=== PATIENT | male | born 1955 | race Caucasian/White ===

== ENCOUNTER 2017-06-13 12:59 | Emergency (ER) | payer MEDICARE, OTHER ==
[2017-06-13 13:12] VITALS: BP 130/82
--- NOTE | 2017-06-13 13:37 | XRAY Report ---
EXAM: CHEST RADIOGRAPHY EXAM DATE: 06/13/2017 01:27 PM. CLINICAL HISTORY: Cough. COMPARISON: None. TECHNIQUE: 2 views. FINDINGS: Lungs/Pleura: No focal opacities evident. No pleural effusion. No pneumothorax. Normal volumes. Mediastinum: Heart and mediastinal contours are unremarkable. Other: None. IMPRESSION: Negative chest. [facility] Referring Provider Line: [phone] SITE ID: [id number]
[2017-06-13] MEDS ORDERED: DEXAMETHASONE 10 MG/ML VIAL PO STA (14:43)
--- NOTE | 2017-06-13 14:45 | ED Physician Documentation ---
PD HPI URI - Stated complaint Stated Complaint: COUGH - Chief complaint Chief Complaint: Heent - History obtained from History obtained from: Patient - History of Present Illness Timing - onset: How many days ago (4) Timing duration: Days (4) Timing details: Gradual onset Pain level max: 4 Pain level now: 3 Associated symptoms: Nasal congestion, Rhinorrhea, Sore throat (mild), Dry cough. No: Fever, Chills, Chest pain, Dyspnea, NVD Contributing factors: Sick contact. No: Travel, Immunocompromised Improves by: Rest Worsened by: Activity Recently seen: Not recently seen Review of Systems Constitutional: denies: Fever, Chills Nose: reports: Rhinorrhea / runny nose, Congestion Throat: denies: Sore throat GI: denies: Abdominal Pain, Nausea, Vomiting, Diarrhea Skin: denies: Rash Musculoskeletal: denies: Neck pain, Back pain Neurologic: denies: Headache PD PAST MEDICAL HISTORY - Past Medical History Past Medical History: Yes GI: GERD - Past Surgical History Past Surgical History: No - Present Medications Home Medications: Ambulatory Orders Medication Instructions Recorded Confirmed Aspirin 1 tab PO DAILY 06/13/17 06/13/17 Benzonatate [Tessalon Perle] 100 - 200 mg PO TID PRN #30 capsule 06/13/17 Cetirizine HCl/Pseudoephedrine 1 each PO BID PRN #30 tab.er.12h 06/13/17 [Zyrtec-D Tablet] Omeprazole [PriLOSEC] 1 tab PO DAILY 06/13/17 06/13/17 - Allergies Allergies/Adverse Reactions: Allergies Allergy/AdvReac Type Severity Reaction Status Date / Time No Known Drug Allergies Allergy Verified 06/13/17 14:27 - Social History Does the pt smoke?: No Smoking Status: Never smoker Does the pt drink ETOH?: No Does the pt have substance abuse?: No - Immunizations Immunizations are current?: Yes - POLST Patient has POLST: No PD ED PE NORMAL - Vitals Vital signs reviewed: Yes - General General: Alert and oriented X 3, No acute distress, Well developed/nourished - HEENT HEENT: PERRL, Ears normal, Moist mucous membranes, Pharynx benign - Neck Neck: Supple, no meningeal sign - Cardiac Cardiac: RRR, Strong equal pulses - Respiratory Respiratory: No respiratory distress, Clear bilaterally - Abdomen Abdomen: Soft, Non tender, Non distended - Derm Derm: Warm and dry - Extremities Extremities: No edema, No calf tenderness / cord - Neuro Neuro: Alert and oriented X 3 - Psych Psych: Normal mood, Normal affect Results - Vitals Vitals: Vital Signs - 24 hr 06/13/17 13:10 Temperature 36.8 C Heart Rate 81 Respiratory 18 Rate Blood Pressure 130/82 H O2 Saturation 98 Oxygen O2 Source Room air - Rads (name of study) Chest x-ray Radiology: Prelim report reviewed, EMP read contemporaneously, See rad report ( No acute disease) PD MEDICAL DECISION MAKING - ED course Complexity details: reviewed results, re-evaluated patient, considered differential, d/w patient ED course: Patient is a 62-year-old gentleman who presents to the emergency department with what appears to be a viral upper respiratory infection. Negative chest x- ray. No pneumonia. No fevers. Will continue supportive care and prescribed cough medication for home as well as decongestants. He is well-appearing, nontoxic. No hypoxia. No respiratory distress. Lungs are clear to auscultation bilaterally. Patient counseled regarding signs and symptoms for which I believe and urgent re-evaluation would be necessary. Patient with good understanding of and agreement to plan and is comfortable going home at this time This document was made in part using voice recognition software. While efforts are made to proofread this document, sound alike and grammatical errors may occur. Departure - Departure Disposition: 01 Home, Self Care Clinical Impression: Viral URI with cough Condition: Good Instructions: ED URI Viral Follow-Up: ANGELICA DALLAS [Primary Care Provider] - Within 1 week Prescriptions: Benzonatate [Tessalon Perle] 100 - 200 mg PO TID PRN #30 capsule PRN Reason: Cough Cetirizine HCl/Pseudoephedrine [Zyrtec-D Tablet] 1 each PO BID PRN #30 tab.er.12h PRN Reason: Nasal Congestion Comments: Return if you worsen. Use the hydrocodone cough syrup at night to help you sleep. This will likely last for 1-2 weeks. Discharge Date/Time: 06/13/17 14:55
== END 2017-06-13 14:55 | disposition home or self-care (01) ==
LOC: ED 12:59
DX: J06.9 Acute upper respiratory infection, unspecified (principal); B97.89 Other viral agents as the cause of diseases classified elsewhere; K21.9 Gastro-esophageal reflux disease without esophagitis
CPT/HCPCS: 71046; 99283

== ENCOUNTER 2017-07-12 06:04 | Emergency (ER) | payer MEDICARE, OTHER ==
[2017-07-12 06:14] VITALS: BP 131/87
[2017-07-12] MEDS ORDERED: DEXAMETHASONE 10 MG/ML VIAL PO STA (06:21)
[2017-07-12] MEDS ORDERED: IBUPROFEN 600 MG TABLET PO STA (06:21)
--- NOTE | 2017-07-12 06:26 | ED Physician Documentation ---
PD HPI HEENT - Stated complaint Stated Complaint: SORE THROAT - Chief complaint Chief Complaint: Heent - History obtained from History obtained from: Patient - History of Present Illness Timing - onset: Yesterday Timing - details: Gradual onset, Still present Location: Throat Improves: Medication Worsens: Swalllowing Associated symptoms: No: Fever Recently seen: Not recently seen - Additional information Additional information: Patient is a 62 year old male with no significant past medical history who is presenting to the emergency department for sore throat and exudate. patient states that the symptoms started yesterday. patient states that he gargled with salt water and mouth wash but the symptoms persisted. patient states that he has symptoms like this once in the past a long time ago and it was strep. Review of Systems Constitutional: denies: Fever, Chills Eyes: denies: Decreased vision, Photophobia Ears: denies: Loss of hearing, Ear pain Nose: denies: Congestion Throat: reports: Sore throat, Swollen tonsils Cardiac: reports: Reviewed and negative Respiratory: denies: Cough GI: reports: Reviewed and negative : reports: Reviewed and negative Skin: reports: Reviewed and negative Neurologic: reports: Reviewed and negative Immunocompromised: denies: Immunocompromised PD PAST MEDICAL HISTORY - Past Medical History GI: GERD - Past Surgical History Past Surgical History: No - Present Medications Home Medications: Ambulatory Orders Medication Instructions Recorded Confirmed Aspirin 1 tab PO DAILY 06/13/17 06/13/17 Benzonatate [Tessalon Perle] 100 - 200 mg PO TID PRN #30 capsule 06/13/17 Cetirizine HCl/Pseudoephedrine 1 each PO BID PRN #30 tab.er.12h 06/13/17 [Zyrtec-D Tablet] Omeprazole [PriLOSEC] 1 tab PO DAILY 06/13/17 06/13/17 - Allergies Allergies/Adverse Reactions: Allergies Allergy/AdvReac Type Severity Reaction Status Date / Time No Known Drug Allergies Allergy Verified 06/13/17 14:27 - Social History Does the pt smoke?: No Smoking Status: Never smoker Does the pt drink ETOH?: No Does the pt have substance abuse?: No - Immunizations Immunizations are current?: Yes - POLST Patient has POLST: No PD ED PE NORMAL - Vitals Vital signs reviewed: Yes - General General: Alert and oriented X 3, No acute distress - HEENT HEENT: Atraumatic, PERRL - Neck Neck: Supple, no meningeal sign - Cardiac Cardiac: RRR - Respiratory Respiratory: No respiratory distress - Abdomen Abdomen: Soft, Non tender, Non distended - Derm Derm: Normal color, No rash - Extremities Extremities: No deformity, Normal ROM s pain - Neuro Neuro: Alert and oriented X 3, No motor deficit, Normal speech Eye Opening: Spontaneous Motor: Obeys Commands Verbal: Oriented GCS Score: 15 - Psych Psych: Normal mood PD ED PE EXPANDED - HEENT HEENT: Pharyngeal erythema, Swollen tonsils, Tonsillar exudate Results - Vitals Vitals: Vital Signs - 24 hr 07/12/17 06:13 Temperature 36.4 C L Heart Rate 71 Respiratory 18 Rate Blood Pressure 131/87 H O2 Saturation 99 Oxygen O2 Source Room air - Labs Labs: Laboratory Tests 07/12/17 06:14 Group A Strep Rapid Negative PD MEDICAL DECISION MAKING - ED course Complexity details: reviewed old records, reviewed results, re-evaluated patient , considered differential, d/w patient ED course: patient was seen and examined at bedside. rapid strep was performed. Patient was treated with ibuprofen and decadron. rapid strep was negative but patient clinically had strep throat and was treated with bicillin. Patient required no further inpatient work up at this time and was stable for discharge with outpatient follow up. Departure - Departure Disposition: 01 Home, Self Care Clinical Impression: Exudative pharyngitis Condition: Good Instructions: ED Strep Pharyngitis Poss Follow-Up: ANGELICA DALLAS [Primary Care Provider] - As Needed Comments: Your symptoms today are being caused by pharyngitis. Your group A strep test was negative but the culture results for other streps is pending. You have been treated with antibiotics as clinically it appears to be strep throat. You should continue to gargle for relief You can take motrin or tylenol as needed for pain. You should follow up with your doctor if your symptoms don't improve. You may return to the emergency department at any time for new worsening or uncontrollable symptoms.
[2017-07-12] MEDS ORDERED: CHERRY SYRUP 10 ML UDC PO ONE (06:34)
[2017-07-12] MEDS ORDERED: PENICILLIN G BENZATHINE 600,000 UNIT/ML SYRINGE IM STA (06:57)
== END 2017-07-12 07:11 | disposition home or self-care (01) ==
LOC: ED 06:04
DX: J02.9 Acute pharyngitis, unspecified (principal)
CPT/HCPCS: 87070; 87430; 96372; 99283; A9270

== ENCOUNTER 2020-06-21 12:44 | Outpatient (CLI) | payer MEDICARE, OTHER ==
--- NOTE | 2020-06-21 13:08 | XRAY Report ---
PROCEDURE: Foot 3 View RT INDICATIONS: MEDIAL RIGHT HEEL PAIN TECHNIQUE: 3 views of the foot were acquired. COMPARISON: None FINDINGS: Bones: No fractures or dislocations. No suspicious bony lesions. Soft tissues: No tibiotalar joint effusion. Achilles tendon appears normal. IMPRESSION: No visualized acute fracture or dislocation. However, occult injury cannot be excluded. Recommend marina rt interval imaging follow-up in 7-10 days as clinically indicated for additional evaluation. Reviewed by: Dara Gamez MD on 06/21/2020 12:06 PM [facility] Approved by: Dara Gamez MD on 06/21/2020 12:06 PM [facility] Station ID: [id number]
== END 2020-06-21 12:45 | disposition home or self-care (01) ==
LOC: DI.N 12:44
PROVIDERS: ATTEND Family Medicine
DX: M79.671 Pain in right foot (principal)

== ENCOUNTER 2020-07-08 16:02 | Outpatient (CLI) | payer MEDICARE, OTHER ==
--- NOTE | 2020-07-08 16:31 | XRAY Report ---
PROCEDURE: Foot 3 View RT INDICATIONS: R FOOT PX TECHNIQUE: 3 views of the foot were acquired. COMPARISON: 06/21/2020 x-ray FINDINGS: Bones: No fractures or dislocations. No suspicious bony lesions. Soft tissues: No tibiotalar joint effusion. Achilles tendon appears normal. IMPRESSION: No acute fracture. No osseous lesion. If symptoms and/or clinical suspicion for pathology continue, f urther assessment with repeat plain films, or advanced imaging (e.g., CT, MRI, or bone scan) is recom mended for further assessment. Reviewed by: Reji Sauceda MD on 07/08/2020 4:30 PM PDT Approved by: Reji Sauceda MD on 07/08/2020 4:30 PM PDT Station ID: [id number]
== END 2020-07-08 16:03 | disposition home or self-care (01) ==
LOC: DI.N 16:02
PROVIDERS: ATTEND Family Medicine
DX: M79.671 Pain in right foot (principal)

== ENCOUNTER 2021-08-04 06:00 | Outpatient (CLI) | payer MEDICARE, OTHER ==
--- NOTE | 2021-08-04 14:40 | XRAY Report ---
PROCEDURE: Knee 4 View LT INDICATIONS: KNEE PAIN TECHNIQUE: 4 views of the left knee(s) were acquired. COMPARISON: None. FINDINGS: Bones: No fractures or dislocations. No suspicious bony lesions. Degenerative arthritis with trico mpartment osteophytes and mild medial compartment joint space loss. Soft tissues: No joint effusion. No suspicious soft tissue calcifications. IMPRESSION: Degenerative arthritis of the left knee. Reviewed by: Thomas Huffman MD on 08/04/2021 2:38 PM PDT Approved by: Thomas Huffman MD on 08/04/2021 2:38 PM PDT Station ID: [id number]
== END 2021-08-04 23:59 | disposition home or self-care (01) ==
LOC: DI.WOS 06:00
PROVIDERS: ATTEND Physician Assistant
DX: M17.12 Unilateral primary osteoarthritis, left knee (principal)

== ENCOUNTER 2022-08-10 12:12 | Outpatient (CLI) | payer MEDICARE, OTHER ==
--- NOTE | 2022-08-10 16:51 | XRAY Report ---
PROCEDURE: Wrist 4 View RT INDICATIONS: INJURY OF WRIST TECHNIQUE: 4 views of the wrist were acquired. COMPARISON: None. FINDINGS: Bones: No fractures or dislocations. No suspicious bony lesions. Mild periarticular osteophyte fo rmation at the radiocarpal, scaphotrapezial, and first metacarpal joints. Scaphoid view: No scaphoid fracture. Soft tissues: No suspicious soft tissue calcifications or masses. IMPRESSION: 1. Osteoarthritis. 2. No acute fracture. No osseous lesion. If symptoms and/or clinical suspicion for pathology continue , further assessment with repeat plain films, or advanced imaging (e.g., CT, MRI, or bone scan) is re commended for further assessment. Reviewed by: Reji Sauceda MD on 08/10/2022 4:49 PM PDT Approved by: Reji Sauceda MD on 08/10/2022 4:49 PM PDT Station ID: [id number]
== END 2022-08-10 12:13 | disposition home or self-care (01) ==
LOC: DI 12:12
PROVIDERS: ATTEND Family Medicine
DX: M19.031 Primary osteoarthritis, right wrist (principal)

== ENCOUNTER 2023-02-18 11:30 | Outpatient (CLI) | payer MEDICARE, OTHER ==
[2023-02-18 18:21] LABS: CALCIUM 9.1 mg/dL (8.5-10.3); CREATININE 0.8 mg/dL (0.6-1.3); POTASSIUM 3.7 mmol/L (3.5-4.5)
== END 2023-02-18 11:45 | disposition home or self-care (01) ==
LOC: LAB.N 11:30
PROVIDERS: ATTEND Family Medicine
DX: M79.10 Myalgia, unspecified site (principal)
CPT/HCPCS: 36415; 80048; 82550